=== PATIENT | male | born 1980 | race Caucasian/White ===

== ENCOUNTER 2018-04-02 07:39 | Inpatient (IN) | payer OTHER ==
[2018-04-02] MEDS: NICOTINE 21MG/24HR 1 EA TRANSDERMAL TD (08:08)
[2018-04-02 13:03] LABS: ANION GAP 7 MEQ/L (8-16); BLOOD UREA NITROGEN 8 MG/DL (7-18); CARBON DIOXIDE LEVEL 25 MEQ/L (21-32); CHLORIDE LEVEL 107 MEQ/L (98-107); CREATININE FOR GFR 0.68 MG/DL (0.70-1.30); GLOMERULAR FILTRATION RATE > 60.0 (>60); GLUCOSE, FASTING 121 MG/DL (70-100); POTASSIUM SERUM 4.2 MEQ/L (3.5-5.1); SODIUM LEVEL 139 MEQ/L (136-145)
[2018-04-02] MEDS ORDERED: MOM 30ML SUSPENSION UDC PO (14:00)
[2018-04-02] MEDS ORDERED: MAALOX 30 ML SUSP *UDC PO (14:00)
[2018-04-02] MEDS: LORazepam 1 MG TAB PO (17:35)
[2018-04-02] MEDS: traZODone 50 MG TAB PO (20:51)
[2018-04-02] MEDS: ACETAMINOPHEN TAB 650MG DOSE (2X325MG) PO (23:53)
[2018-04-03] MEDS: LORazepam 1 MG TAB PO ×4 (01:36→21:36)
[2018-04-03] MEDS: NICOTINE 21MG/24HR 1 EA TRANSDERMAL TD (08:33)
[2018-04-03] MEDS ORDERED: CitaloPRAM (CeleXA) 10 MG TABLET PO (09:00)
[2018-04-03] MEDS ORDERED: NICOTINE 21MG/24HR 1 EA TRANSDERMAL TD (09:00)
[2018-04-03 09:53] LABS: HEMATOCRIT 43.9 % (42.0-52.0); HEMOGLOBIN 16.1 g/dl (13.5-17.5); MEAN CORPUSCULAR HEMOGLOBIN 34.3 pg (27.0-33.0); MEAN CORPUSCULAR VOLUME 93.6 fl (80.0-96.0); PLATELET COUNT, AUTOMATED 238 10^3/uL (150-450); RED BLOOD COUNT 4.69 10^6/uL (4.30-6.10); RED CELL DISTRIBUTION WIDTH 11.8 % (11.5-14.5); WHITE BLOOD COUNT 8.3 10^3/uL (4.0-10.0)
[2018-04-03 09:54] LABS: MEAN CORPUSCULAR HGB CONC 36.7 g/dl (32.0-36.5)
[2018-04-03 10:16] LABS: ALBUMIN 3.9 GM/DL (3.2-5.2); ALBUMIN/GLOBULIN RATIO 1.18 (1.00-1.93); ALKALINE PHOSPHATASE 59 U/L (45-117); ALT/SGPT 28 U/L (12-78); ANION GAP 10 MEQ/L (8-16); AST/SGOT 17 U/L (7-37); BILIRUBIN,TOTAL 0.7 MG/DL (0.2-1.0); BLOOD UREA NITROGEN 11 MG/DL (7-18); CARBON DIOXIDE LEVEL 23 MEQ/L (21-32); CHLORIDE LEVEL 107 MEQ/L (98-107); CPK CREATINE PHOSPHOKINASE 63 U/L (39-308); CREATININE FOR GFR 0.76 MG/DL (0.70-1.30); GLOMERULAR FILTRATION RATE > 60.0 (>60); GLUCOSE, FASTING 108 MG/DL (70-100); POTASSIUM SERUM 4.2 MEQ/L (3.5-5.1); SODIUM LEVEL 140 MEQ/L (136-145); TOTAL PROTEIN 7.2 GM/DL (6.4-8.2)
[2018-04-03] MEDS: cloNIDine 0.1 MG TAB PO (14:35)
[2018-04-03] MEDS: ACETAMINOPHEN TAB 650MG DOSE (2X325MG) PO (16:58)
[2018-04-03] MEDS: QUEtiapine FUMARATE 50 MG TAB PO (20:13)
[2018-04-03] MEDS: MIRTAZAPINE 15 MG TAB PO (21:35)
[2018-04-03] MEDS: zolPIDEM TARTRATE 10MG TAB PO (23:19)
[2018-04-04] MEDS: LORazepam 1 MG TAB PO ×4 (03:34→22:36)
[2018-04-04] MEDS: cloNIDine 0.1 MG TAB PO (07:39)
[2018-04-04] MEDS: NICOTINE 21MG/24HR 1 EA TRANSDERMAL TD (08:32)
[2018-04-04] MEDS: zolPIDEM TARTRATE 10MG TAB PO (20:04)
[2018-04-04] MEDS: MIRTAZAPINE 15 MG TAB PO ×2 (20:05→23:56)
[2018-04-04] MEDS: QUEtiapine FUMARATE 50 MG TAB PO ×2 (20:05→23:56)
[2018-04-05] MEDS: cloNIDine 0.1 MG TAB PO (02:24)
[2018-04-05] MEDS: NICOTINE 21MG/24HR 1 EA TRANSDERMAL TD (08:04)
[2018-04-05] MEDS: LORazepam 1 MG TAB PO (08:06)
[2018-04-05] MEDS: LORazepam 0.5 MG TAB PO ×2 (15:31→21:46)
[2018-04-05] MEDS: ACETAMINOPHEN TAB 650MG DOSE (2X325MG) PO ×2 (15:33→23:58)
[2018-04-05] MEDS: QUEtiapine FUMARATE 50 MG TAB PO (20:33)
[2018-04-05] MEDS: MIRTAZAPINE 15 MG TAB PO (20:33)
[2018-04-05] MEDS: zolPIDEM TARTRATE 10MG TAB PO (21:47)
[2018-04-06] MEDS: LORazepam 0.5 MG TAB PO ×2 (04:55→11:16)
[2018-04-06] MEDS: NICOTINE 21MG/24HR 1 EA TRANSDERMAL TD (08:30)
[2018-04-06] MEDS: ACETAMINOPHEN TAB 650MG DOSE (2X325MG) PO (11:16)
== END 2018-04-06 14:38 | disposition home or self-care (01) | DRG 754 ==
LOC: M PSY 04-04 03:35 → M ED 07:39 → M ED INP 13:49 → M PSY 14:15
DX: F32.9 Major depressive disorder, single episode, unspecified (principal); F43.10 Post-traumatic stress disorder, unspecified; F41.0 Panic disorder [episodic paroxysmal anxiety]; F11.90 Opioid use, unspecified, uncomplicated; F10.10 Alcohol abuse, uncomplicated; F17.200 Nicotine dependence, unspecified, uncomplicated

== ENCOUNTER 2023-10-14 13:57 | Emergency (ER) | payer OTHER ==
[~2023-10-14] VITALS: Ht 167.6 cm; Wt 91.0 kg
[~2023-10-14 13:57] MED LIST: AMBI10TA PO; MIRT15TA3 PO; NICO21PAT TD; QUET50TA4 PO; XANA0.5T PO; patient comment
[2023-10-14] MEDS ORDERED: BENZOCAINE 20% GEL 9GM TUBE (ANBESOL MAX STRENGTH) TOP ONE (18:50)
[2023-10-14] MEDS ORDERED: LIDOCAINE 2% W/ EPINEPHRINE 1.7 ML DENTAL INJ SM ONE (18:50)
[2023-10-14] MEDS ORDERED: ONDANSETRON 4MG ORAL DISINTEGRATING TAB PO ONE (18:50)
[2023-10-14] MEDS ORDERED: ACETAMINOPHEN 325 MG TAB PO ONE (18:50)
[2023-10-14] MEDS ORDERED: AMOX875T2 PO (19:43)
[2023-10-14] MEDS ORDERED: KETO10TAB PO (19:43)
[2023-10-14] MEDS ORDERED: AUGMENTIN 875 MG TAB PO ONE (19:45)
[2023-10-14 19:53] VITALS: BP 146/55; TEMP 97.2; O2SAT 97
== END 2023-10-14 19:54 | disposition home or self-care (01) ==
LOC: M ED 13:57
DX: K02.9 Dental caries, unspecified (principal); K08.9 Disorder of teeth and supporting structures, unspecified; Z87.891 Personal history of nicotine dependence

== ENCOUNTER → 2023-12-24 | Outpatient (CLI) | payer OTHER ==
[~2023-12-24] MED LIST changes: +AMOX875T2 PO; +KETO10TAB PO
== END ==
LOC: M RAD 09:34
PROVIDERS: ATTEND Nurse Practitioner Adult Health
DX: K76.0 Fatty (change of) liver, not elsewhere classified (principal); F10.20 Alcohol dependence, uncomplicated; K76.7 Hepatorenal syndrome; K76.89 Other specified diseases of liver

== ENCOUNTER → 2024-02-10 | Outpatient (CLI) | payer OTHER | LOC: M SOG 07:53 | PROVIDERS: ATTEND Physician Assistant | DX: M54.50 Low back pain, unspecified (principal); Z53.9 Procedure and treatment not carried out, unspecified reason ==

== ENCOUNTER → 2024-02-11 | Outpatient (CLI) | payer OTHER | LOC: M SOG 10:29 | PROVIDERS: ATTEND Physician Assistant | DX: M54.50 Low back pain, unspecified (principal) ==

== ENCOUNTER 2024-09-15 18:36 | Emergency (ER) | payer OTHER ==
[~2024-09-15] VITALS: Ht 167.6 cm; Wt 85.0 kg
[2024-09-15 23:15] VITALS: BP 112/65; TEMP 97.1; O2SAT 100
[2024-09-16] MEDS ORDERED: MIRA3350 PO (01:27)
[2024-09-16] MEDS: METHYLNALTREXONE BROMIDE 12MG/0.6ML VIAL (RELISTOR) SC ONE (01:34)
[2024-09-16] MEDS ORDERED: ONDA-282 PO (02:15)
== END 2024-09-16 02:20 | disposition home or self-care (01) ==
LOC: EDBD 18:36 → M ED 18:36
DX: K59.00 Constipation, unspecified (principal); F41.9 Anxiety disorder, unspecified; F11.10 Opioid abuse, uncomplicated; F10.10 Alcohol abuse, uncomplicated; Z79.2 Long term (current) use of antibiotics; Z79.83 Long term (current) use of bisphosphonates; Z79.899 Other long term (current) drug therapy
CPT/HCPCS: 74018; 96372; 99284; J2212

== ENCOUNTER 2024-10-13 15:20 | Inpatient (IN) | payer MEDICAID, OTHER ==
[~2024-10-13] VITALS: Ht 175.3 cm; Wt 90.0 kg
[~2024-10-13 15:20] MED LIST changes: +MIRA3350 PO; +ONDA-282 PO
[2024-10-13 16:04] LABS: HEMATOCRIT 34.9 % (42.0-52.0); HEMOGLOBIN 12.3 g/dl (13.5-17.5); MEAN CORPUSCULAR HEMOGLOBIN 31.5 pg (27.0-33.0); MEAN CORPUSCULAR HGB CONC 35.2 g/dl (32.0-36.5); MEAN CORPUSCULAR VOLUME 89.3 fl (80.0-96.0); PLATELET COUNT, AUTOMATED 300 10^3/uL (150-450); RED BLOOD COUNT 3.91 10^6/uL (4.30-6.10)
[2024-10-13 16:23] LABS: CANNABINOIDS URINE NEGATIVE (NEGATIVE); PHENCYCLIDINE URINE NEGATIVE (NEGATIVE)
[2024-10-13 16:24] LABS: AMPHETAMINES LEVEL URINE NEGATIVE (NEGATIVE); BARBITURATES URINE NEGATIVE (NEGATIVE); BENZODIAZEPINES URINE NEGATIVE (NEGATIVE); COCAINE METABOLITE URINE NEGATIVE (NEGATIVE); ETHYL ALCOHOL (ETHANOL) < 0.003 % (0.000-0.010); OPIATES URINE NEGATIVE (NEGATIVE)
[2024-10-13 16:26] LABS: ALBUMIN 3.5 G/DL (3.2-5.2); ALKALINE PHOSPHATASE 69 U/L (40-129); ALT/SGPT 35 U/L (7.0-40); AST/SGOT 16 U/L (<34); BILIRUBIN,DIRECT < 0.1 MG/DL (<0.4); BILIRUBIN,TOTAL 0.3 MG/DL (0.3-1.2); BLOOD UREA NITROGEN 9 MG/DL (9-23); CALCIUM LEVEL 9.4 MG/DL (8.5-10.1); CARBON DIOXIDE LEVEL 24 MMOL/L (20-31); CHLORIDE LEVEL 104 MMOL/L (98-107); CREATININE FOR GFR 0.57 MG/DL (0.70-1.30); GLOMERULAR FILTRATION RATE > 60.0 (>60); GLUCOSE, FASTING 91 MG/DL (60-100); POTASSIUM SERUM 4.3 MMOL/L (3.5-5.1); SALICYLATE LEVEL < 3.0 MG/DL (<30); SODIUM LEVEL 141 MMOL/L (136-145); TOTAL PROTEIN 7.2 G/DL (5.7-8.2)
[2024-10-13 16:27] LABS: METHADONE URINE POSITIVE (NEGATIVE)
[2024-10-13 16:30] LABS: THYROID STIMULATING HORMONE 1.546 uIU/ML (0.55-4.78)
[2024-10-13] MEDS: NICOTINE 21MG/24HR 1 EA TRANSDERMAL TD ONE (18:24)
[2024-10-13] MEDS ORDERED: THERTAB52 PO (19:43)
[2024-10-13] MEDS ORDERED: ATOR1TAB21 PO (19:43)
[2024-10-13] MEDS ORDERED: METH10CO3 PO (19:43)
[2024-10-13] MEDS ORDERED: INVE234I IM (19:43)
[2024-10-13] MEDS ORDERED: SERT50TA29 PO (19:43)
[2024-10-13] MEDS ORDERED: VITA400T PO (19:43)
[2024-10-13] MEDS ORDERED: GABA-1172 PO (19:43)
[2024-10-13] MEDS ORDERED: OXYB5TAB14 PO (19:43)
[2024-10-13] MEDS ORDERED: HOME MED LIST COMPLETE! XX SCH (19:45)
[2024-10-13] MEDS ORDERED: MOM 30ML SUSPENSION UDC PO PRN (21:05)
[2024-10-13] MEDS: ATORVASTATIN 20 MG TAB PO SCH (22:23)
[2024-10-13] MEDS: GABAPENTIN 300 MG CAP PO SCH (22:23)
[2024-10-13] MEDS: oxyBUTYnin 5 MG TAB PO SCH (22:23)
[2024-10-14] MEDS: traZODone 50 MG TAB PO PRN (01:48)
[2024-10-14] MEDS: PILL CUTTER 1 EACH XX PRN (08:07)
[2024-10-14] MEDS: SERTRALINE HCL 50 MG TAB PO SCH (08:08)
[2024-10-14] MEDS: NICOTINE 14 MG/24 HR TRANSDERMAL TD SCH (08:08)
[2024-10-14] MEDS: diphenhydrAMINE 25MG CAP PO PRN (08:08)
[2024-10-14] MEDS ORDERED: METHADONE 10MG TAB PO SCH (09:00)
[2024-10-14] MEDS ORDERED: NICOTINE 21MG/24HR 1 EA TRANSDERMAL TD SCH (09:00)
[2024-10-14] MEDS: OLANZapine 5 MG TAB PO PRN (09:14)
[2024-10-14] MEDS: VITAMIN D (CHOLECALCIFEROL) 400 INTERNATIONAL UNITS TAB PO SCH (09:14)
[2024-10-14] MEDS: QUEtiapine FUMARATE 25 MG TAB PO SCH (09:14)
[2024-10-14] MEDS: METHADONE 10MG TAB PO SCH (09:15)
[2024-10-14] MEDS: NICOTINE POLACRILEX 2 MG GUM PO PRN (09:37)
[2024-10-14] MEDS: SENOKOT S TAB PO SCH (13:29)
[2024-10-14] MEDS ORDERED: ISOVUE-370 76% 100ML VIAL As Ordered ONE (13:53)
[2024-10-14] MEDS: methocarbamoL 500 MG TAB PO PRN (15:02)
[2024-10-14 16:51] VITALS: BP 117/68; TEMP 97.2; O2SAT 97
[2024-10-15] MEDS: MAALOX 30 ML SUSP *UDC PO PRN (06:14)
[2024-10-15 07:00] VITALS: BP 130/70; TEMP 97.8; O2SAT 97
[2024-10-15 07:41] VITALS: BP 130/70; TEMP 97.8; O2SAT 97
[2024-10-15 08:04] LABS: CHOLESTEROL LEVEL 245 MG/DL (<200); CHOLESTEROL RISK RATIO 4.72 (<5); HDL CHOLESTEROL 51.9 MG/DL (>40); LDL CHOLESTEROL 149.3 MG/DL (<100); NON-HDL-C 193.1 MG/DL; TRIGLYCERIDES LEVEL 219 MG/DL (<150)
[2024-10-15] MEDS: QUEtiapine FUMARATE 50MG TAB PO ONE (15:04)
[2024-10-15 17:23] VITALS: BP 114/65; TEMP 97.7; O2SAT 99
[2024-10-16] MEDS: ACETAMINOPHEN 325 MG TAB PO PRN (04:38)
[2024-10-16 06:28] VITALS: BP 136/81; TEMP 97.4; O2SAT 98
[2024-10-16 15:33] VITALS: BP 107/68; TEMP 98.1; O2SAT 97
[2024-10-16] MEDS: RAMELTEON 8 MG TAB (ROZEREM) PO SCH (20:13)
[2024-10-17 06:55] VITALS: BP 132/84; TEMP 97.4; O2SAT 97
[2024-10-17] MEDS: SERTRALINE 100 MG TAB PO SCH (08:14)
[2024-10-17 16:10] VITALS: BP 121/79; TEMP 97.6; O2SAT 98
[2024-10-18 06:17] VITALS: BP 135/86; TEMP 97.6; O2SAT 97
[2024-10-18] MEDS: AMPHETAMINE/DEXTROAMPHETAMINE 5 MG *ER* CAPSULE (ADDERALL XR) PO SCH (09:07)
[2024-10-18] MEDS: IBUPROFEN 400MG TAB PO PRN (09:37)
[2024-10-18 15:44] VITALS: BP 116/69; TEMP 97.4; O2SAT 96
[2024-10-19 06:44] VITALS: BP 108/68; TEMP 97.5; O2SAT 99
[2024-10-19] MEDS ORDERED: ZOLO100T PO (09:44)
[2024-10-19] MEDS ORDERED: OXYB2.5T PO (09:44)
[2024-10-19] MEDS ORDERED: THERTAB52 PO (09:44)
[2024-10-19] MEDS ORDERED: AMPH1CAP9 PO (09:44)
[2024-10-19] MEDS ORDERED: RAME8TAB2 PO (09:44)
[2024-10-19] MEDS ORDERED: QUET1TAB17 PO (09:44)
[2024-10-19] MEDS ORDERED: ATOR1TAB21 PO (09:44)
[2024-10-19] MEDS ORDERED: SENN-52 PO (09:44)
[2024-10-19] MEDS ORDERED: GABA-1172 PO (09:44)
[2024-10-19] MEDS ORDERED: VITA400T PO (09:44)
[2024-10-20] MEDS ORDERED: AMPH1CAP15 PO (13:28)
== END 2024-10-19 10:00 | disposition home or self-care (01) | DRG 753 ==
LOC: M ED 15:20 → M ED INP 21:03 → M PSY 10-14 01:20
PROVIDERS: ADMIT Psychiatry & Neurology Neurology; ATTEND Psychiatry & Neurology Psychiatry
DX: F39 Unspecified mood [affective] disorder (principal); F17.200 Nicotine dependence, unspecified, uncomplicated; F43.10 Post-traumatic stress disorder, unspecified; F41.9 Anxiety disorder, unspecified; R45.851 Suicidal ideations; Z79.899 Other long term (current) drug therapy; K76.0 Fatty (change of) liver, not elsewhere classified; J44.9 Chronic obstructive pulmonary disease, unspecified; M79.7 Fibromyalgia; K59.00 Constipation, unspecified; M54.59 Other low back pain; M41.9 Scoliosis, unspecified; M62.830 Muscle spasm of back; F11.21 Opioid dependence, in remission